=== PATIENT | female | born 1980 | race Caucasian/White ===

== ENCOUNTER 2018-10-06 07:58 | Emergency (ER) | payer MEDICAID ==
[~2018-10-06] VITALS: Ht 162.6 cm; Wt 55.0 kg
[~2018-10-06 07:58] MED LIST: ARIP20TA2 PO; BUSP10TA3 PO; DIPH50CA4 PO; HYDR-523 PO; PERP4TAB11 PO; TRAZ-213 PO
[2018-10-06 09:06] LABS: BASOPHILS % 0.6 % (0.0-2.0); EOSINOPHILS % 1.5 % (0.0-5.0); HEMOGLOBIN. 13.8 g/dL (12.0-16.0); LYMPHOCYTES % 18.6 % (20.0-50.0); MEAN CORPUSCULAR HEMOGLOBIN 27.3 pg (28.0-32.0); MEAN CORPUSCULAR VOLUME 82.9 fL (81.0-99.0); MONOCYTES % 4.9 % (2.0-8.0); NEUTROPHILS % 74.4 % (40.0-76.0); PLATELET 324 x1000/uL (130-400); RED BLOOD CELL COUNT 5.06 mill/uL (4.2-5.4); RED CELL DISTRIBUTION WIDTH 13.1 % (11.6-14.6)
[2018-10-06 09:10] LABS: CHLORIDE 104 mEq/L (98-107)
[2018-10-06] MEDS ORDERED: IBUPROFEN 600MG TABLET PO ONE (11:00)
[2018-10-06 11:33] LABS: *AMPHETAMINES SCREEN URINE NEGATIVE (NEGATIVE)
[2018-10-06 11:34] LABS: *BARBITURATES SCREEN URINE NEGATIVE (NEGATIVE); *BENZODIAZEPINES SCREEN URINE NEGATIVE (NEGATIVE); *COCAINE SCREEN URINE NEGATIVE (NEGATIVE); METHADONE URINE SCREEN NEGATIVE (NEGATIVE); OPIATES URINE SCREEN NEGATIVE (NEGATIVE)
[2018-10-06 11:35] LABS: CANNABINOID URINE SCREEN NEGATIVE (NEGATIVE); PHENCYCLIDINE URINE SCREEN NEGATIVE (NEGATIVE)
[2018-10-06] MEDS ORDERED: GABA-531 PO (12:40)
[2018-10-06] MEDS ORDERED: METF-414 PO (12:43)
[2018-10-06] MEDS ORDERED: TERB250T51 PO (12:44)
[2018-10-06 13:15] VITALS: BP 126/85
== END 2018-10-06 13:15 | disposition home or self-care (01) ==
LOC: ER 08:00 → CANBEDREQ 14:15
DX: R07.9 Chest pain, unspecified (principal); E11.9 Type 2 diabetes mellitus without complications; I10 Essential (primary) hypertension; F20.9 Schizophrenia, unspecified; Z79.899 Other long term (current) drug therapy
CPT/HCPCS: 36415; 71045; 80053; 80305; 83880; 84484; 85025; 85379; 93005; 99284; Z7610

== ENCOUNTER 2018-10-26 21:04 | Emergency (ER) | payer MEDICAID ==
[~2018-10-26] VITALS: Ht 152.4 cm; Wt 63.0 kg
[~2018-10-26 21:04] MED LIST changes: +GABA-531 PO; +METF-414 PO; +TERB250T51 PO
[2018-10-27 02:25] LABS: BASOPHILS % 0.7 % (0.0-2.0); EOSINOPHILS % 1.2 % (0.0-5.0); HEMATOCRIT. 39.8 % (36.0-48.0); HEMOGLOBIN. 13.3 g/dL (12.0-16.0); LYMPHOCYTES % 22.7 % (20.0-50.0); MEAN CORPUSCULAR HEMOGLOBIN 27.8 pg (28.0-32.0); MEAN CORPUSCULAR VOLUME 83.2 fL (81.0-99.0); MEAN PLATELET VOLUME 8.9 fl (7.4-10.4); MONOCYTES % 7.6 % (2.0-8.0); NEUTROPHILS % 67.8 % (40.0-76.0); PLATELET 306 x1000/uL (130-400); RED BLOOD CELL COUNT 4.78 mill/uL (4.2-5.4); RED CELL DISTRIBUTION WIDTH 13.3 % (11.6-14.6)
[2018-10-27 02:29] LABS: CHLORIDE 107 mEq/L (98-107); HCG SCREEN NEGATIVE
[2018-10-27 02:35] LABS: D-DIMER 0.37 mg/L FEU (<0.50); PROTHROMBIN TIME 10.3 sec (9.6-11.0)
[2018-10-27 08:55] VITALS: BP 132/78
== END 2018-10-27 08:56 | disposition home or self-care (01) ==
LOC: ER 21:34
DX: R07.9 Chest pain, unspecified (principal); F20.9 Schizophrenia, unspecified; E11.9 Type 2 diabetes mellitus without complications; F41.9 Anxiety disorder, unspecified; E78.00 Pure hypercholesterolemia, unspecified; Z86.73 Personal history of transient ischemic attack (TIA), and cerebral infarction without residual deficits; Z79.899 Other long term (current) drug therapy; Z90.49 Acquired absence of other specified parts of digestive tract
CPT/HCPCS: 36415; 71045; 81025; 83880; 84484; 84703; 85379; 93005; 99284

== ENCOUNTER 2019-11-12 00:49 | Emergency (ER) | payer MEDICAID ==
[~2019-11-12] VITALS: Ht 160 cm; Wt 61.0 kg
[~2019-11-12 00:49] MED LIST changes: -TRAZ-213 PO; +TRAZ-252 PO
[2019-11-12] MEDS ORDERED: LORAZEPAM 1MG TABLET PO ONE (01:15)
[2019-11-12 02:13] LABS: *COCAINE SCREEN URINE NEGATIVE (NEGATIVE); METHADONE URINE SCREEN NEGATIVE (NEGATIVE); OPIATES URINE SCREEN NEGATIVE (NEGATIVE); PHENCYCLIDINE URINE SCREEN NEGATIVE (NEGATIVE)
[2019-11-12 02:14] LABS: *AMPHETAMINES SCREEN URINE NEGATIVE (NEGATIVE); *BARBITURATES SCREEN URINE NEGATIVE (NEGATIVE); *BENZODIAZEPINES SCREEN URINE NEGATIVE (NEGATIVE); CANNABINOID URINE SCREEN NEGATIVE (NEGATIVE)
[2019-11-12] MEDS ORDERED: RISPERIDONE 0.5MG TABLET PO SCH (11:00)
[2019-11-12 11:45] VITALS: BP 118/78
== END 2019-11-12 11:50 | disposition home or self-care (01) ==
LOC: ER 00:49
DX: F32.9 Major depressive disorder, single episode, unspecified (principal); F20.9 Schizophrenia, unspecified; F41.9 Anxiety disorder, unspecified; E11.9 Type 2 diabetes mellitus without complications; Z79.84 Long term (current) use of oral hypoglycemic drugs
CPT/HCPCS: 80305; 99285

== ENCOUNTER 2023-01-02 21:51 | Emergency (ER) | payer MEDICAID ==
[~2023-01-02] VITALS: Ht 172.7 cm; Wt 75.0 kg
[~2023-01-02 21:51] MED LIST changes: -DIPH50CA4 PO; +DIPH50CA40 PO; -GABA-531 PO; +GABA-532 PO; -TERB250T51 PO; +TERB250T88 PO
[2023-01-02 21:53] VITALS: BP 160/95; PULSE 110; RESP 16; TEMP 98.6; O2SAT 99
[2023-01-02] MEDS ORDERED: KETOROLAC 60MG/2ML VIAL IM STA (22:27)
[2023-01-02] MEDS ORDERED: CYCLOBENZAPRINE 10MG TABLET PO ONE (22:30)
[2023-01-02 22:45] LABS: BASOPHILS % 0.3 % (0.0-2.0); EOSINOPHILS % 1.4 % (0.0-5.0); HEMATOCRIT. 35.5 % (36.0-48.0); HEMOGLOBIN. 11.7 g/dL (12.0-16.0); LYMPHOCYTES % 17.8 % (20.0-50.0); MEAN CORPUSCULAR VOLUME 79.1 fL (81.0-99.0); MEAN PLATELET VOLUME 8.2 fl (7.4-10.4); MONOCYTES % 7.7 % (2.0-8.0); NEUTROPHILS % 72.8 % (40.0-76.0); PLATELET 399 x1000/uL (130-400); RED BLOOD CELL COUNT 4.49 mill/uL (4.2-5.4); RED CELL DISTRIBUTION WIDTH 14.3 % (11.6-14.6)
[2023-01-02 22:50] LABS: CHLORIDE 97 mEq/L (98-107)
[2023-01-02 22:59] LABS: HCG SCREEN NEGATIVE
[2023-01-02] MEDS ORDERED: POTASSIUM CHLORIDE 20MEQ TABLET SR PO ONE (23:30)
[2023-01-03] MEDS ORDERED: CYCL10TA21 MT (01:21)
== END 2023-01-03 02:39 | disposition home or self-care (01) ==
LOC: ER 22:03
DX: E87.6 Hypokalemia (principal); E11.9 Type 2 diabetes mellitus without complications; Z79.899 Other long term (current) drug therapy; Z86.59 Personal history of other mental and behavioral disorders
CPT/HCPCS: 80053; 84703; 85025; 36415; 93005; 96372; 99284; J1885; Z7610 ×2

== ENCOUNTER 2025-06-23 09:55 | Emergency (ER) | payer MEDICAID ==
[~2025-06-23] VITALS: Ht 167.6 cm; Wt 68.0 kg
[~2025-06-23 09:55] MED LIST changes: +CYCL10TA21 MT; +GABA-1180 PO; -GABA-532 PO
[2025-06-23 09:58] VITALS: O2SAT 99
[2025-06-23] MEDS: ACETAMINOPHEN 500MG TABLET PO ONE (11:21)
[2025-06-23] MEDS: LIDOCAINE 5% PATCH TOP SCH (11:22)
[2025-06-23] MEDS: KETOROLAC 30MG/ML VIAL IM ONE (11:22)
[2025-06-23] MEDS ORDERED: ACET-2708 MT (11:49)
[2025-06-23] MEDS ORDERED: LIDO-53 TP (11:49)
[2025-06-23 12:07] VITALS: BP 100/64; PULSE 108; RESP 18; TEMP 36.8; O2SAT 98
== END 2025-06-23 12:15 | disposition home or self-care (01) ==
LOC: ER 10:24
DX: M54.50 Low back pain, unspecified (principal); E11.9 Type 2 diabetes mellitus without complications; F41.9 Anxiety disorder, unspecified; I10 Essential (primary) hypertension; F20.9 Schizophrenia, unspecified; E78.00 Pure hypercholesterolemia, unspecified; Z79.899 Other long term (current) drug therapy; Z86.73 Personal history of transient ischemic attack (TIA), and cerebral infarction without residual deficits
CPT/HCPCS: 99283; 81025; 72170; J1885